=== PATIENT | male | born 1975 | race Caucasian/White ===

== ENCOUNTER 2017-11-16 08:12 | Emergency (ER) | payer OTHER ==
[~2017-11-16] VITALS: Ht 190.5 cm; Wt 99.8 kg
[2017-11-16] MEDS ORDERED: SIMVASTATIN10 MG PO (08:28)
[2017-11-16] MEDS ORDERED: LANTUS100 UNIT/M SUBQ (08:29)
[2017-11-16] MEDS ORDERED: DICLOFENAC SODI75 MG PO (08:29)
[2017-11-16] MEDS ORDERED: ASPIR 8181 MG PO (08:30)
[2017-11-16] MEDS ORDERED: PIOGLITAZONE15 MG (08:30)
[2017-11-16] MEDS ORDERED: GLUCOPHAGE XR750 MG PO (08:30)
[2017-11-16] MEDS ORDERED: KEFLEX500 M1 PO (09:56)
[2017-11-16] MEDS ORDERED: NORCO 5-325 TA1 EACH PO (09:56)
[2017-11-16 10:32] VITALS: BP 142/94
== END 2017-11-16 10:33 | disposition home or self-care (01) ==
LOC: M.ERS 08:12
DX: S61.211A Laceration without foreign body of left index finger without damage to nail, initial encounter (principal); E10.9 Type 1 diabetes mellitus without complications; W31.89XA Contact with other specified machinery, initial encounter; Y93.89 Activity, other specified; Y92.89 Other specified places as the place of occurrence of the external cause; Y99.8 Other external cause status